=== PATIENT | male | born 1985 | race American Indian/Alaskan Native ===

== ENCOUNTER 2018-01-14 02:00 | Emergency (ER) | payer SELFPAY ==
[2018-01-14 02:04] VITALS: BMI 19.9
[2018-01-14 02:22] VITALS: TEMP 98.2; O2SAT 100
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
[2018-01-14] MEDS ORDERED: Lidocaine 1% 5ml Abboject ONE (04:34)
[2018-01-14] MEDS ORDERED: TDAP Vaccine 0.5 mL Syr IM ONE (05:30)
[2018-01-14 06:27] VITALS: BP 127/69; PULSE 89; RESP 17
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
== END 2018-01-14 06:20 | disposition home or self-care (01) ==
LOC: ED 02:00
DX: S09.90XA Unspecified injury of head, initial encounter (principal); S61.210A Laceration without foreign body of right index finger without damage to nail, initial encounter; Y08.89XA Assault by other specified means, initial encounter; Y92.9 Unspecified place or not applicable; Z23 Encounter for immunization

== ENCOUNTER 2018-01-26 13:39 | Emergency (ER) | payer SELFPAY ==
[2018-01-26 13:40] VITALS: BMI 19.9
[2018-01-26 14:42] VITALS: PULSE 62; RESP 18; TEMP 98.3; O2SAT 100
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
[2018-01-26 15:00] VITALS: BP 142/86
== END 2018-01-26 15:00 | disposition home or self-care (01) ==
LOC: ED 13:39
DX: S61.210D Laceration without foreign body of right index finger without damage to nail, subsequent encounter (principal); Y08.89XD Assault by other specified means, subsequent encounter